=== PATIENT | female | born 1990 | race Caucasian/White ===

== ENCOUNTER 2022-05-06 11:31 | Outpatient (CLI) | payer BC, SELFPAY ==
[2022-05-07 12:41] LABS: Strep B DNA Probe NEGATIVE (Negative)
== END 2022-05-06 11:32 | disposition home or self-care (01) ==
LOC: NFLDREF 11:31
PROVIDERS: PCP Family Medicine; Visit Provider Advanced Practice Midwife
DX: Z34.93 Encounter for supervision of normal pregnancy, unspecified, third trimester (principal); Z3A.35 35 weeks gestation of pregnancy
CPT/HCPCS: 87081; 87653

== ENCOUNTER 2022-05-27 04:30 | Inpatient (IN) | payer BC, SELFPAY ==
[2022-05-27] VITALS (56 sets, daily range): BP systolic 88–139; BP diastolic 50–73; PULSE 60–118; RESP 16–18; TEMP 36.6–37.1; O2SAT 97–100; BMI 26.8
[2022-05-27] MEDS: LACTATED RINGERS 1000 ML 1,000 ML 1125 ML IV ×2 (05:26→06:17)
[2022-05-27] MEDS: LIDOCAINE 2% (PF) 5 ML VIAL EPIDURAL (06:03)
[2022-05-27] MEDS: ROPIVACAINE 0.2% 100 ml 100 ML 12 MG EPIDURAL (06:03)
[2022-05-27 06:10] LABS: SARS PCR* Negative SARS-CoV-2 (Negative)
--- NOTE | 2022-05-27 06:34 | PM.ANBPRC ---
PFSH PFSH Social History Smoking Status: Former smoker Meds Home Medications and Allergies Home Medications Medication Instructions Recorded Confirmed Type calcium carbonate 200 mg calcium 200 mg PO QID PRN 04/30/22 05/27/22 History (500 mg) chewable tablet (Tums) multivitamin 1 tab PO QDAY 04/30/22 05/27/22 History vitamin C-vitamin E 500 mg-400 1 cap PO DAILY 04/30/22 05/27/22 History unit capsule Allergies Allergy/AdvReac Type Severity Reaction Status Date / Time latex Allergy Intermediate Hives Verified 05/22/22 15:41 Results Labs Labs: Laboratory Results - last 24 hr 05/27/22 04:48 SARS-CoV-2 (PCR) Negative SARS-CoV-2 Vital Signs Vital Signs: Last Vital Signs Temp 98.6 F 05/27/22 02:16 Pulse 67 05/27/22 06:29 Resp 18 05/27/22 02:16 BP 93/52 L 05/27/22 06:29 Pulse Ox 98 05/27/22 06:26 Weight: 80.002 kg Height: 172.72 cm Anesthesia Procedures Epidural Insertion Start Time: 05:58 Stop Time: 06:58 Start Date: 05/27/22 Stop Date: 04/27/22 Reason for Block: procedure for pain Patient Position: sitting Performed By: Paradise Fraser Preanesthetic Checklist: IV checked, risks and benefits discussed, monitors and equipment checked, pre-op evaluation, timeout performed and anesthesia consent Prep: patient draped Monitoring: blood pressure monitoring, continuous pulse oximetry and heart rate Approach: midline Vertebral Space: lumbar (1-5) Epidural Technique: RACHELE saline Needle Type: Tuohy needle Injection Technique: continuous catheter Needle gauge: 17 Needle Length (cm): 10 cm Needle Insertion Depth (cm): 7 Catheter Type: multi-orifice Catheter at skin depth (cm): 14 Test Dose Result: negative
--- NOTE | 2022-05-27 08:17 | W.PM.LDBA ---
Subjective History of Present Illness Date Seen: 05/27/22 Narrative: Patient is being admitted to Labor and Delivery for spontaneous onset of labor. She is a 31 year old at 38 5/7 weeks gestation. She reports that her labor began last evening just before midnight. She presented to triage for increasing intensity and frequency of contractions. Around 530-6 am she received her epidural. She reports she is now comfortable with the epidural and is resting. Her full history and physical was dictated by Candace Rome CNP on 05/22/2022. Please see this for details. OB PROBLEM LIST 1. Blood type: O negative NEEDS RhoGAM PP 2. Subchorionic hemorrhage lower uterine segment, 0.4 x 0.4 x 1.6 cm. Asymptomatic OB - H&P: Exam Physical Exam: Vital signs: Temp Pulse Resp BP Pulse Ox 98.6 F 90 18 96/60 98 05/27/22 06:34 05/27/22 08:13 05/27/22 06:34 05/27/22 08:13 05/27/22 06:26 Constitutional: Constitutional: no acute distress Routine HEENT Exam: Head: Present atraumatic ENT: Present mucous membranes moist Routine Neck Exam: Neck: Present full ROM Comments: Supple Routine Respiratory Exam: Respiratory: Present CTA bilaterally Routine Cardiovascular Exam: Cardiovascular: RRR Routine Abdominal Exam: Comments: Gravid, cephalic by brian Detailed Labor and Delivery Exam: Patient Gravid: yes Dilation (cm): 5 Effacement (%): 80 Cervix position: mid Consistency: medium Contraction frequency (min): 2 Contraction duration (sec): 70 Tachysystole: No Contraction intensity: Strong/Firm Fetus (Single): Station: -1 Heart Rate Baseline: 125 Monitor Accelerations: Present Monitor Decelerations: None Prison Variability: Moderate (11-25) Routine Skin Exam: Present intact Routine Neurological Exam: Present alert and oriented X3 Routine Psychiatric Exam: Present normal affect and normal thought process OB - Problem Based A/P Additional Plan (1) Spontaneous onset of labor: Status: Acute (2) Pain during labor: Status: Acute Plan at 38 5/7 weeks gestation Patient is coping well with epidural, continue for labor pain management. Labor Spontaneous, early labor. Continue with expectant management. Patient declines AROM at this time, will evaluate in 2-4 hours. If unchanged, recommend AROM at that time. Category I FHR tracing GBS negative status Continue with intrapartum cares as ordered. Continuous monitoring with epidural in place. Anticipate vaginal . Delivery/Labor/Induction Plan Plan: expectant management
[2022-05-27] MEDS: PHENYLEPHRINE 100 MCG/ML SYRINGE IVP (08:34)
[2022-05-27] MEDS: LACTATED RINGERS 1000 ML 1,000 ML 125 ML IV (09:12)
[2022-05-27] MEDS: OXYTOCIN 30 unit/500 ML in NS 30 UNIT/500 ML BAG 300 UNIT IVPB (10:10)
[2022-05-27] MEDS: LIDOCAINE 1 % PF 30 ML INJECTION (10:20)
--- NOTE | 2022-05-27 11:03 | PM.OBPRCVD ---
Procedure Delivery date: 05/27/22 Procedure Done: Global Intrapartal Events: None Delivery monitor: external FHT and external uterine Route of delivery: Laceration description: Perineal - 2nd Degree Delivery repair: Vicryl (3-0) Estimated blood loss (mL): 150 Anesthesia type: Epidural (Local w/ repair) Narrative: Patient was admitted for spontaneous onset of labor. Continuous auscultation was reassuring throughout labor. Moderate variablity with intermittent decelerations noted during 2nd stage of labor. SROM noted at 0935 with clear fluid. Patient complete at 0940 and pushing at 0945. of a viable male at 1004. Vertex delivered OA. No nuchal cord or shoulder. Body delivered easily and without incident. Infant passed to mothers abdomen with a vigorous cry. Cord was clamped and cut at > 5 minutes. APGARS were 8 at one minute and 9 at five minutes respectively. Mouth was bulb suctioned. Intact placenta with a 3 vessel cord delivered spontaneous at 1014. Fundus firm. 2st degree identified and repaired in typical fashion. QBL 150 cc. Mother and baby stable; mother plans to breastfeed. Infant weight pending. Infant Gender: Male presentation: vertex Placental Delivery Description: Spontaneous Cord Description: 3 Vessels OB Vag Delivery Procedures Additional Procedures ECV: No Cook Catheter Insertion: No NST: No D&C: No Laceration Repair: Yes Tubal Ligation : No Other: No
[2022-05-27] MEDS: IBUPROFEN 600 MG TABLET PO ×2 (14:09→20:31)
[2022-05-27] MEDS: ACETAMINOPHEN 500 MG TABLET 1000 MG PO (17:03)
[2022-05-28 00:54] VITALS: BP 99/66; PULSE 66; RESP 16; TEMP 36.7; O2SAT 97
[2022-05-28] MEDS: ACETAMINOPHEN 500 MG TABLET 1000 MG PO (00:57)
[2022-05-28 04:02] VITALS: BP 96/64; PULSE 69; RESP 16; TEMP 36.6; O2SAT 97
[2022-05-28] MEDS: IBUPROFEN 600 MG TABLET PO (04:21)
[2022-05-28 06:23] LABS: Hemoglobin* 10.9 gm/dL (12.0-16.0)
--- NOTE | 2022-05-28 08:04 | P.DS_ITS ---
DS: Providers Provider Time Seen by Provider: 08:04 Date Seen: 05/28/22 Date of admission: 05/27/22 04:30 Primary care physician: Carissa Sadler MD Admitting Clinician: Sarah Wells MD Attending Physician on discharge: Sarah Wells MD Date of Discharge: 05/28/22 DS: Diagnosis Discharge Diagnosis (1) Lactating mother: Status: Acute DS: Medications Discharge Medications Other Medication Instructions: See discharge instructions Exam Const: Vital Signs, click to edit/add: Vital Signs - 24 hr 05/27/22 08:13 05/27/22 08:30 05/27/22 08:44 Temperature 98.1 F Pulse Rate 90 66 73 Pulse Rate [Pulse Oximeter] Respiratory Rate Blood Pressure 96/60 100/62 94/58 L Blood Pressure [Le ft Arm] Pulse Oximetry 05/27/22 09:00 05/27/22 09:14 05/27/22 09:29 Temperature Pulse Rate 75 75 65 Pulse Rate [Pulse Oximeter] Respiratory Rate Blood Pressure 102/57 L 98/56 L 111/55 L Blood Pressure [Le ft Arm] Pulse Oximetry 05/27/22 10:14 05/27/22 10:29 05/27/22 10:30 Temperature Pulse Rate 70 75 Pulse Rate [Pulse Oximeter] Respiratory Rate 16 Blood Pressure 139/68 109/58 L Blood Pressure [Le ft Arm] Pulse Oximetry 05/27/22 10:44 05/27/22 10:45 05/27/22 10:59 Temperature 98.8 F Pulse Rate 66 70 Pulse Rate [Pulse Oximeter] Respiratory Rate 16 Blood Pressure 110/57 L 112/62 Blood Pressure [Le ft Arm] Pulse Oximetry 05/27/22 11:00 05/27/22 11:14 05/27/22 11:15 Temperature Pulse Rate 66 Pulse Rate [Pulse Oximeter] Respiratory Rate 16 16 Blood Pressure 113/55 L Blood Pressure [Le ft Arm] Pulse Oximetry 05/27/22 11:29 05/27/22 11:30 05/27/22 11:44 Temperature Pulse Rate 63 66 Pulse Rate [Pulse Oximeter] Respiratory Rate 16 Blood Pressure 112/61 111/63 Blood Pressure [Le ft Arm] Pulse Oximetry 05/27/22 11:45 05/27/22 11:59 05/27/22 12:00 Temperature Pulse Rate 88 Pulse Rate [Pulse Oximeter] Respiratory Rate 16 16 Blood Pressure 116/67 Blood Pressure [Le ft Arm] Pulse Oximetry 05/27/22 12:14 05/27/22 12:15 05/27/22 12:29 Temperature Pulse Rate 60 69 Pulse Rate [Pulse Oximeter] Respiratory Rate 16 Blood Pressure 112/64 110/64 Blood Pressure [Le ft Arm] Pulse Oximetry 05/27/22 14:09 05/27/22 15:00 05/27/22 16:03 Temperature 98.1 F 97.9 F 98.2 F Pulse Rate Pulse Rate [Pulse Oximeter] 70 Respiratory Rate 16 Blood Pressure Blood Pressure [Le ft Arm] 105/67 Pulse Oximetry 97 05/27/22 17:03 05/27/22 18:00 05/27/22 20:26 Temperature 97.9 F 98.1 F 98.3 F Pulse Rate Pulse Rate [Pulse Oximeter] 74 Respiratory Rate 16 Blood Pressure Blood Pressure [Le ft Arm] 101/63 Pulse Oximetry 97 05/28/22 00:54 05/28/22 04:02 Temperature 98.0 F 97.9 F Pulse Rate Pulse Rate [Pulse Oximeter] 66 69 Respiratory Rate 16 16 Blood Pressure Blood Pressure [Le ft Arm] 99/66 96/64 Pulse Oximetry 97 97 Documenting provider has reviewed patient's vital signs: yes Common normals: no apparent distress, oriented x3 and healthy appearing General appearance: cooperative HENMT: Common normals: normocephalic Head and scalp: normocephalic Neck & C-Spine: Common normals: full ROM and supple Chest: Common normals: inspection of chest normal Chest: symmetrical chest wall rise Resp: Common normals: normal respiratory effort and clear to auscultation bilaterally Auscultation: clear to auscultation bilaterally Cardio: Common normals: regular rate and regular rhythm Rate: regular rate Rhythm: regular rhythm GI: Common normals: Normal to inspection, nondistended, normoactive bowel sounds present and soft to palpation Palpation: soft : Common normals: external appearance normal (mild edema) External Female Exam: external swelling (mild); no erythema Speculum exam - vagina: vaginal laceration OB/external & speculum: Yes bleeding (normal lochia) Uterus: U/U Lochia: small Uterus palpation: uterus nontender Back & Pelvis: Common normals: thoracic and lumbar spine normal to inspection Extremity: Common normals: normal to inspection and full ROM Neuro: Common normals: oriented x3 Skin: Common normals: no rashes or lesions noted General skin exam: no rashes or lesions noted OB - DS: Summary Hospital Course Hospital Course: The patient is a 31 year old G 2 P 2002 at 38.5 weeks gestation that was admitted to the [facility] on 05/27/22 for labor. She had an uncomplicated vaginal delivery. She delivered a viable male infant. She is breast feeding, which is going well. the patient has done well. She is planning on NFP/ for prevention. Her vitals have remained stable, and she is afebrile. She is voiding without difficulty. Her pain is well c ontrolled with current medications. She is ambulating w/o difficulty. Time spent discussing smoking cessation with patient: 3 to 10 minutes Peripartum Data delivery method: Vaginal Laceration description: Perineal - 2nd Degree [place] Infant Gender: Male Infant Discharge Plan: Home [place] Infant A Infant Gender: Male Infant Discharge Plan: Home Status at Discharge Functional status at discharge: independent ambulation Overall status at discharge: patient is back to baseline Time Spent with Patient Time attestation: Total time spent providing and/or coordinating discharge services: Time spent: Less than 30 minutes Discharge Plan Discharge Disposition: Home, Self-Care Date of Admission: 05/27/22 04:30 Attending Provider on Discharge: Carissa Larsen Primary Care Provider: Carissa Sadler Condition: Stable Anticipated Discharge Date/Time: 05/28/22 13:00 Discharge Medications: New docusate sodium 100 mg Capsule 100 mg PO DAILY Qty: 100 0RF Rx Instructions: take 1 cap 1-2 times a day as needed for constipation ibuprofen 600 mg Tablet 600 mg PO Q6H PRNQty: 60 0RF acetaminophen 500 mg Tablet 1,000 mg PO Q6H PRN (Reason: pain/fever) Qty: 0 0RF pramoxine 1 % Foam 1 applic topical QID PRNQty: 0 0RF simethicone 80 mg Tablet,Chewable 80 - 160 mg PO Q4H PRN (Reason: gas) Qty: 0 0RF Lanolin (HPA) 100 % Cream 1 applic topical Q1H PRNQty: 0 0RF Continued vitamin C-vitamin E 500-400 mg-unit capsule 1 cap PO DAILY 0RF multivitamin Tablet 1 tab PO QDAY 0RF calcium carbonate [Tums] 200 mg calcium (500 mg) tablet,chewable 200 mg PO QID PRN0RF Discharge Orders: Discharge Order (Routine); Ordered 05/28/22 Ordered By: Carissa Larsen Activity Level: Activity as Tolerated Discharge Diet: Regular Follow Up Appointments: Carissa Larsen CNM [Certified Nurse Vessel Crew Member] - Carissa Sadler MD [Primary Care Provider] - [facility]
== END 2022-05-28 10:50 | disposition home or self-care (01) | DRG 560 ==
LOC: OB OUT 04:31 → OB 04:31
PROVIDERS: Advanced Practice Midwife; Admitting Provider Obstetrics & Gynecology; PCP Family Medicine; Visit Provider Obstetrics & Gynecology
DX: O70.1 Second degree perineal laceration during delivery (principal); Z3A.38 38 weeks gestation of pregnancy; Z37.0 Single live birth
CPT/HCPCS: 01967; 36415; 85018; 87635; A9270; J2001; J2370; J2795; J7120

== ENCOUNTER 2023-02-25 08:09 | Outpatient (CLI) | payer BC, SELFPAY ==
--- NOTE | 2023-02-25 08:15 | CRLHL7_ITS ---
For Patients: As a result of the Cures Act, medical imaging exams and procedure reports are released immediately into your electronic medical record. You may view this report before your referring provider. If you have questions, please contact your health care provider. INDICATION: First trimester scan, establish dates. COMPARISON: None. TECHNIQUE: Real-time tatum-scale imaging of the pelvis was performed. FINDINGS: Sonographic imaging demonstrates a single living intrauterine gestation. The embryo demonstrates a regular cardiac rate measuring 120 beats per minute. The embryo`s crown-rump length measurement of 0.3 cm corresponds to a gestational age of 5 weeks 6 days with a sonographic due date of October 22, 2023. There is a normal-appearing yolk sac measuring 2 mm. There are no gross abnormalities noted within the embryo at this early state of development. The placenta has not yet developed. The gestational sac has a normal appearance and there is no evidence of a perigestational hemorrhage. The amount of fluid within the sac appears appropriate for gestational age. The cervix is closed. The myometrium appears normal. The ovaries are of normal size. The right ovary measures 2.7 x 1.3 x 2.0 cm. The left ovary measures 4.5 x 1.8 x 1.7 cm. Small corpus luteum cyst of on the left measuring 1.9 x 1.3 x 1.7 cm. There are no suspicious fluid collections noted in the cul-de-sac. IMPRESSION: Normal first trimester OB ultrasound exam. Gestational age calculated at 5 weeks 6 days with a sonographic due date of October 22, 2023. Dictated by Alex Schroeder MD @ 02/25/2023 9:57:19 AM (Electronically Signed)
== END 2023-02-25 08:10 | disposition home or self-care (01) ==
LOC: US 08:10
PROVIDERS: PCP Family Medicine; Visit Provider Advanced Practice Midwife
DX: Z34.91 Encounter for supervision of normal pregnancy, unspecified, first trimester (principal); Z3A.01 Less than 8 weeks gestation of pregnancy
CPT/HCPCS: 76817; 86703; 86803; 86850; 86900; 86901; 87340; 87491; 87591

== ENCOUNTER 2023-02-25 09:20 | Outpatient (CLI) | payer BC, SELFPAY ==
[2023-02-25 20:21] LABS: Chlamydia DNA Amplified* NOT DETECTED (No Detected); GC DNA Amplified* NOT DETECTED (No Detected)
== END 2023-02-25 09:21 | disposition home or self-care (01) ==
PROVIDERS: PCP Family Medicine; Visit Provider Advanced Practice Midwife
DX: Z34.91 Encounter for supervision of normal pregnancy, unspecified, first trimester (principal); Z3A.08 8 weeks gestation of pregnancy
CPT/HCPCS: 86592; 86703; 86762; 86787; 86803; 86850; 86900; 86901; 87086; 87340; 87491; 87591

== ENCOUNTER 2023-07-29 14:01 | Outpatient (CLI) | payer BC, SELFPAY | END 2023-07-29 14:02 | disposition home or self-care (01) | LOC: NFLDREF 14:01 | PROVIDERS: PCP Family Medicine; Visit Provider Physician Assistant | DX: O09.522 Supervision of elderly multigravida, second trimester (principal); Z3A.27 27 weeks gestation of pregnancy | CPT/HCPCS: 86592; 86850; J2791 ==

== ENCOUNTER 2023-09-22 15:30 | Outpatient (CLI) | payer BC, SELFPAY | END 2023-09-22 15:31 | disposition home or self-care (01) | LOC: NFLDREF 09-24 20:12 | PROVIDERS: PCP Family Medicine; Referring Provider Family Medicine; Visit Provider Advanced Practice Midwife | DX: Z34.83 Encounter for supervision of other normal pregnancy, third trimester (principal); O09.529 Supervision of elderly multigravida, unspecified trimester; Z36.85 Encounter for antenatal screening for Streptococcus B | CPT/HCPCS: 87081; 87653 ==

== ENCOUNTER 2023-10-12 01:00 | Outpatient (CLI) | payer BC, SELFPAY ==
[2023-10-12 01:06] VITALS: PULSE 74; O2SAT 99
[2023-10-12 01:08] VITALS: BP 103/65; PULSE 100; RESP 16; TEMP 36.6
--- NOTE | 2023-10-12 04:51 | PC.OBNST ---
NST Note NST Note Start: 10/12/23 01:10 Freq: ONCE Status: Active Protocol: Document 10/12/23 04:50 KRISSY (Rec: 10/12/23 04:51 KRISSY [id number]) NST Note 3 Para (# of births) 2 EDC 10/22/23 Gestational Age In Weeks & Days 38 Weeks & 4 Days Patient Presented with Complaint(s) of Contractions/cramping Reactive Yes Appropriate for Gestational Age Yes FRANK Barr RNC Date 10/12/23 Reactive Yes Appropriate for Gestational Age Yes FRANK Lewis RN Date 10/12/23 OB NST charge Yes Complete NST Note via Write Note Yes The provider's electronic signature indicates the NST is reactive/appropriate for gestational age. *Note to provider: If an addendum is required, open the patient's chart and click on the note under the Nurse/Allied Health tab.
== END 2023-10-12 04:44 | disposition home or self-care (01) ==
LOC: OB OUT 01:01 → OB 01:03
PROVIDERS: PCP Family Medicine; Visit Provider Advanced Practice Midwife
DX: O47.1 False labor at or after 37 completed weeks of gestation (principal); Z3A.38 38 weeks gestation of pregnancy
CPT/HCPCS: 59025; 99213

== ENCOUNTER 2023-10-17 01:08 | Inpatient (IN) | payer BC, SELFPAY ==
[2023-10-17] VITALS (33 sets, daily range): BP systolic 97–125; BP diastolic 46–74; PULSE 60–214; RESP 16–18; TEMP 36.6–37.1; O2SAT 80–100; BMI 27.3
[2023-10-17 01:00] LABS: Amnisure Rom* POSITIVE
--- NOTE | 2023-10-17 03:06 | W.PM.LDBA ---
Subjective History of Present Illness Narrative: Rosalee Neal is a 33 yo at 39 2/7 weeks gestation being admitted to Labor and Delivery for PROM. She reports she woke up last evening to rupture of membranes, clear fluid, around 2300. She has had some mild cramping but denies any regular contractions. She is supported by her , Brayan. Her full history and physical was dictated by MEIR Hightower on 09/29/2023. Please see this for details. Specific Issues/Plans . Dates by 5w6d USN H&P 09/29/23 by Tamara Hightower CNM Latex Allergy Spouse: Brayan. Children: Joaquin Vargas. Baby: Boy! 1. RH negative, needs rhogam at 28 weeks. Given 07/29/23 2. AMA: age 33 at delivery [id number]: No increased risk for aneuploidy, male. LVL 2 USN [facility] 05/25/23: Breech, 3vessel cord, post placenta no previa, Normal survey. EFW 81%. COVID: not vaccinated Flu: declines TDAP: 08-12-23 RSV: recommended. declined. OB - Problem Based A/P Additional Plan (1) PROM (premature rupture of membranes): Status: Acute (2) AMA (advanced maternal age) multigravida 35+: Status: Acute (3) 39 weeks gestation of : Status: Acute (4) Rh negative state in antepartum period: Status: Acute Plan ASSESSMENT:? 33 at 39 2/7 weeks gestation? complicated by:?Rh negative, AMA Labor type: Not in labor? Category 1 FHR pattern.?? Labor complicated by: PROM? GBS negative? ? PLAN:? 1. Routine intrapartum cares as ordered. Reviewed PROM and use of Pitocin for augmentation vs expectant management for 12-24 hours. She prefers expectant management. Encouraged sleep tonight. Reviewed ways to encourage labor in the morning including activity, walking/position changes, nipple stimulation, and labor warm-up. All questions answered. 2. Monitoring per policy, intermittent? 3. Planning epidural for pain management. Candidate for analgesia of choice if desired. 4. Patient encouraged to reposition and ambulate to promote physiologic labor and .? 5. Anticipate ? Delivery/Labor/Induction Plan Plan: expectant management OB Exam Physical Exam Vital signs: Temp Pulse BP 98.2 F 106 H 116/71 10/17/23 01:48 10/17/23 00:30 10/17/23 00:30 Narrative: Vitals Reviewed Constitutional:? Alert and oriented x3 HEENT:? Normocephalic, atraumatic Neck:? Supple Lungs:? Clear to auscultation bilaterally Heart:? Regular rate and rhythm, no murmur, rub or gallop Abdomen:? Soft, nontender, and gravid. Vertex by Huber's, confirmed with cervical exam. Extremities:? No edema or erythema Cervix: 3 cm/50%/0 station/vertex per RN NST: 125 bpm/moderate variability/15x15 accelerations/absent decelerations/occasional contractions Detailed Labor and Delivery Exam Patient Gravid: Yes
--- NOTE | 2023-10-17 10:56 | PM.OBPNL ---
Subjective Date Seen: 10/17/23 Narrative: ?Val is reporting occasional labor pain/contractions. ?Brayan is with her for support. ?She is now 12 hours post ROM and would like to move forward with augmentation with IV Pitocin. Continues to leak clear fluid, SVE deferred at this time. ? Objective Exam: General Appearance:? Calm, cooperative. ?No acute distress. ? Psychiatric Exam: Alert and oriented, appropriate affect Abdomen: Gravid Ctx: ?irregular ?Mild ? ? FHTs: ?Baseline: 135. ?EFM just placed for 2 minute NST. SVE: deferred Membranes: Intact ?SROM X 12 hours Vital Signs: Last Vital Signs Temp 98.2 F 10/17/23 10:00 Pulse 75 10/17/23 09:58 Resp 16 10/17/23 10:00 BP 108/64 10/17/23 09:58 Plan Plan: Assessment:?? at 39.2 gestation?? GBS Negative? Labor type: Not in labor? complicated by: AMA, Rh negative Labor complicated by: PROM? Plan:?? Augmentation with IV Pitocin per protocol. Continuos monitoring while on IV Pitocin. Continue with routine intrapartum cares as ordered.?? Patient encouraged to move and change positions to promote physiologic labor and .?? Nonpharmacologic comfort measures per patient preference. Candidate for analgesia of choice, planning epidural. Anticipate progress to NVD. ?
[2023-10-17 11:30] LABS: Basophils Absolute Auto 0.02 K/uL (0.00-0.30); Basophils Percent Auto 0.2 % (0.0-3.0); Eosinophils Absolute Auto 0.07 K/uL (0.00-0.50); Eosinophils Percent Auto 0.7 % (0.0-7.0); Hematocrit 37.3 % (33.0-51.0); Hemoglobin* 12.5 gm/dL (12.0-16.0); Immature Granulocytes Abs Auto 0.02 K/uL (0.00-0.30); Immature Granulocytes Pct Auto 0.2 %; Lymphocytes Percent Auto 17.3 % (20-44); Mean Corpuscular HGB Conc 34 gm/dL (32-36); Mean Corpuscular Hemoglobin 31 pg (26-34); Mean Corpuscular Volume 93 fL (80-100); Monocytes Percent Auto 5.3 % (0.0-11.0); Neutrophils Percent Auto 76.3 % (42.0-72.0); Platelet Count* 136 K/uL (140-440); RDW Coefficient of Variation % 13.1 % (11.5-15.5); Red Blood Count 4.02 m/uL (4.00-5.20); Slide Review Reflex No; White Blood Count* 9.62 K/uL (4.50-11.00)
[2023-10-17] MEDS: LACTATED RINGERS 1000 ML 1,000 ML 125 ML IV (11:46)
[2023-10-17] MEDS: OXYTOCIN 30 unit/500 ML in NS 30 UNIT/500 ML BAG IVPB (11:47)
[2023-10-17] MEDS: LACTATED RINGERS 1000 ML 1,000 ML 999 ML IV (13:49)
[2023-10-17] MEDS: ROPIVACAINE 0.2% 100 ml 100 ML 12 MG EPIDURAL (14:02)
--- NOTE | 2023-10-17 14:11 | P.ANBPRC_ITS ---
PFSH PFS Medical History NVD (normal vaginal delivery) ?O80 - Encounter for full-term uncomplicated delivery (ICD-10) Surgical History History of endoscopy ?Z98.890 - Other specified postprocedural states (ICD-10) S/P sympathectomy ?Z98.890 - Other specified postprocedural states (ICD-10) H/O knee surgery ?Z98.890 - Other specified postprocedural states (ICD-10) [place] teeth extracted ?K08.409 - Partial loss of teeth, unspecified cause, unspecified class (ICD- 10) Family History Paternal Grandmother Liver cancer Paternal Grandfather Dementia Maternal Grandmother Alveolar emphysema of lung Maternal Grandfather Diabetes Social History Narrative: SOCIAL? ? Education: Bachelors? ? Work: office services manager? ? Partner: Brayan, , Finance? ? Lives with: Brayan, kids? ? Pets: dogs? ? Abuse: Denies past Unable to assess current, partner present? ? Special Diet: Denies? ? Ok with a blood transfusion: yes? ? Culture or quaker beliefs: denies? RISK FACTORS? ? Exercise Times/wk: walking/running? ? Depression/Anxiety: denies? ? Previous Treatments NA Therapy NA SAM: 0 PHQ 9: 0? ? Seat Belt Use: Routinely ? Smoking: Denies past ?Smoked 4 years, socially in college Alcohol/day: Denies while ? ? Caffeine: 2 cups coffee ? ? Drug Use: Denies past/present? What is your current living situation?: I presently have a place to live Problems where you live: no known problems In the past 12 months, utilities in danger of being shut off: no In past 12 months, lack of transportation kept you from medical appts, meetings, work, or getting things needed for daily living: no In the past 12 mos, have been you worried that your food would run out before you had money to buy more?: never true In the past 12 mos, the food you bought just didn't last and you didn't have money to buy more?: never true Smoking Status: Never smoker How often does anyone, including family, friends and others, physically hurt you : never How often does anyone, including family, friends and others, insult or talk down to you: never How often does anyone, including family, friends and others, threaten you with harm: never How often does anyone, including family, friends and others, scream or curse at you: never Little interest or pleasure in doing things: not at all Feeling down, depressed, or hopeless: not at all Meds Home Medications and Allergies Home Medications Medication Instructions Recorded Confirmed Type multivitamin 1 tab PO QDAY 04/30/22 10/17/23 History cholecalciferol (vitamin D3) 25 25 mcg PO QDAY 02/25/23 10/17/23 History mcg (1,000 unit) capsule vitamin B complex 1 tab PO QDAY 02/25/23 10/17/23 History Allergies Allergy/AdvReac Type Severity Reaction Status Date / Time latex Allergy Intermediate Hives Verified 10/13/23 15:24 Results Labs Labs: Laboratory Results - last 24 hr 10/17/23 10/17/23 00:32 11:20 WBC 9.62 RBC 4.02 Hgb 12.5 Hct 37.3 MCV 93 MCH 31 MCHC 34 RDW Coeff of Carrie 13.1 Plt Count 136 L Neut % (Auto) 76.3 H Lymph % (Auto) 17.3 L [place] % (Auto) 5.3 Eos % (Auto) 0.7 Baso % (Auto) 0.2 Neut # (Auto) 7.30 H Lymph # (Auto) 1.70 [place] # (Auto) 0.50 Eos # (Auto) 0.07 Baso # (Auto) 0.02 Abs Immat Gran (auto) 0.02 Imm/Tot Granulo (auto) 0.2 Membrane Rupture POSITIVE Blood Type O Negative Antibody Screen POSITIVE Vital Signs Vital Signs: Last Vital Signs Temp 98.2 F 10/17/23 10:00 Pulse 96 10/17/23 14:09 Resp 16 10/17/23 10:00 BP 110/67 10/17/23 14:09 Pulse Ox 100 10/17/23 13:57 Weight: 81.647 kg Height: 172.72 cm Anesthesia Procedures Epidural Insertion Patient Location: OB Start Time: 13:30 Stop Time: 14:30 Start Date: 10/17/23 Stop Date: 10/17/23 Reason for Block: procedure for pain Patient Position: sitting Performed By: Sang Lockwood Preanesthetic Checklist: IV checked, risks and benefits discussed, surgical consent, monitors and equipment checked, pre-op evaluation, timeout performed and anesthesia consent Prep: chlorhexidine gluconate Monitoring: blood pressure monitoring, continuous pulse oximetry and heart rate Approach: midline Vertebral Space: lumbar (1-5) Epidural Technique: RACHELE saline Needle Type: Tuohy needle Injection Technique: continuous catheter Needle gauge: 17 Needle Length (cm): 10 cm Needle Insertion Depth (cm): 6 Catheter Gauge: 19 Catheter Type: multi-orifice Catheter at skin depth (cm): 12 Test Dose Result: negative and lidocaine 1.5% with epinephrine 1 to 200,000
--- NOTE | 2023-10-17 14:30 | P.OBPN_ITS ---
Subjective Date Seen: 10/17/23 Narrative: ?Val is coping well with labor pain/contractions. ?Braayn is with her for support. ?She recently had an epidural placed and is feeling pressure with contractions. She continues to leak clear fluid. She would like to continue with her epidural for comfort and pain management.? Objective Exam: VSS, afebrile General Appearance:? Calm, cooperative. ?No acute distress. ? Psychiatric Exam: Alert and oriented, appropriate affect Abdomen: Gravid Ctx: ?Q 2-3 min apart. ? ?Moderate ? FHTs: ?Baseline: 130. ? ? Variability: moderate. ?Accels: +. ? ?Decels: ?late decels times 2 in last 30 minutes. SVE: 6/95%/-1 Membranes: ?SROM X 15.5 hours Vital Signs: Last Vital Signs Temp 98.2 F 10/17/23 10:00 Pulse 92 10/17/23 14:25 Resp 16 10/17/23 10:00 BP 118/51 L 10/17/23 14:25 Pulse Ox 100 10/17/23 13:57 Pelvic Exam Dilation (cm): 6 Effacement (%): 95 Station: -1 Contractions Monitor mode: External Contraction Frequency: 2-3 Contraction pattern: Regular Contraction intensity: Moderate Pitocin Rate (mU/min): 2 Assessment Assessment: active labor Station: -1 Amniotic Membrane Status: SROM Status: Category ll Heart Rate Baseline: 130 Trade Economist Variability: Moderate (6-25) Monitor Accelerations: Absent Monitor Decelerations: Late (2 in last 30 minutes) Plan Plan: Assessment:?? at 39.2 gestation?? GBS neg Patient is coping well with challenges of labor.?? Labor type: Augmented, Active labor? complicated by: AMA, Rh negative Labor complicated by: PROM without onset of labor, augmentation with IV Pitocin? Plan:?? Continue with augmentation, titrate IV Pitocin per protocol based on pt response Continue with routine intrapartum cares as ordered.?? Patient encouraged to change positions to promote physiologic labor and .?? Epidural for pain management Continuous monitoring per protocol Anticipate progress to NVD. ?
--- NOTE | 2023-10-17 15:34 | W.PM.OBVAGDE ---
OB Procedure Vag Delivery Mother Details Mother Details: The patient is a 33 year-old, 3, Para 2, admitted on 10/17/23 at 39.2 Days gestation for SROM with clear fluid. : 3 Para: 3 Weeks Gestation: 39.2 Admission Date: 10/16/23 Additional Details Amniotic Membrane Status: SROM Amniotic Membrane Rupture Date: 10/16/23 Amniotic Membrane Rupture Time: 23:00 Amniotic Membrane Fluid Description: Clear Analgesia/Anesthesia Type: Epidural Waterbirth: No Pitcoin: Yes Intrapartal Events: Labor Augmentation Delivery augmentation: pitocin Labor Onset: 12:00 Complete: 14:52 Pushin:53 Heart: heart tones during second stage were Category II, FHR 115 no variables with moderate variability and no accelerations. Delivery Details Delivery Date: 10/17/23 Delivery Time: 15:12 Route of delivery: Gender: Male Infant Viability: Alive; Heart Rate Present Position at Delivery: OA Delivery Details: 33?y.o?at 39.2 weeks.? Val had SROM wih clear fluid at 2300 on 10/16/23 without onset of contractions. After 12 hours of rupture without labor we discussed options of waiting longer for labor to start or augmentation with IV Pitocin. Risks and benefits were reviewed and she elected to move forward with Pitocin augmentation. Her Pitocin rate was increased to 2mu/hr and she requested an epidural for pain. Shortly after placement she complained of strong pelvic pressure and was found to be complete. ? ? She became complete at 1452.??She pushed in semi-fowlers position..? Spontaneous vaginal delivery at 1512 of?a viable?male infant.??Delivered in vertex OA position.??There was a 30 second shoulder dystocia which was resolved with delivery of the posterior arm. Jose was performed just prior to this. ? Spontaneous cry noted.?? placed on maternal abdomen.??Cord?was clamped and cut after a 5+ minute delay.??Nose and mouth were bulb suctioned.? Shoulder dystocia: yes 30 seconds? Nuchal cord: no? Meconium stained?fluid: no? Water : no? ? ? 8 at 1 minute and 9 at 5 minutes.? ? Placenta delivered spontaneously and?complete?at 1525 with a?3 vessel?cord.?? Bleeding controlled with fundal massage and?pitocin?for AMTSL.? ? Mother and were stable after delivery.? ? Lacerations:? 1st degree perineal , hemostatic and after discussion with patient was not repaired. ? Bleeding?post delivery?was: minimal . ?The fundus was firm to palpation.? Blood loss: 100?mL.? Blood loss measurement type: QBL? ? ? Sponge,?lap?and needles counts are correct.? Mother and infant were stable after delivery.? 1 Minute Interval Total Score: 8 5 Minute Interval Total Score: 9 Additional Details Shoulder Dystocia: Yes Placenta Delivery Time: 15:25 Placental Delivery Description: Spontaneous Procedure Done: Global Blood Loss: 100 Laceration: Perineal - 1st Degree Blood Loss Measurement Type: QBL Bakri Used: No Sponge/Need Count Correct: Yes Cord Vessel Description: 3 Vessels Event Summary Status: Mother and were stable after delivery. Disposition: floor
[2023-10-17] MEDS: ACETAMINOPHEN 500 MG TABLET 1000 MG PO (19:42)
[2023-10-17] MEDS: IBUPROFEN 600 MG TABLET PO (23:28)
[2023-10-18 04:43] VITALS: BP 115/62; PULSE 69; RESP 16; TEMP 36.9; O2SAT 96
[2023-10-18] MEDS: IBUPROFEN 600 MG TABLET PO (05:40)
--- NOTE | 2023-10-18 06:26 | PM.ANPOST ---
Post Anesthesia Note Post Anesthesia Note Patient seen: Inpatient Respiratory Status: adequate Cardiovascular Status: adequate Mental Status: baseline Pain: adequate Temp: baseline Anesthetic awareness: N/A Complications: none Follow care: none
[2023-10-18 07:52] VITALS: BP 95/58; PULSE 69; RESP 14; TEMP 36.8
--- NOTE | 2023-10-18 08:46 | PM.OBDSVD1 ---
DS: Providers Provider Date Seen: 10/18/23 Date of admission: 10/17/23 01:08 Primary care physician: Carissa Sadler MD Admitting Clinician: Jessica Mcclendon CNM Attending Physician on discharge: Jessica Mcclendon CNM DS: Diagnosis Discharge Diagnosis (1) care and examination immediately after delivery: Status: Acute (2) Lactating mother: Status: Acute Exam Narrative: Exam Narrative: GENERAL APPEARANCE:? normal affect, alert, no distress MOOD:? appropriate CHEST:? clear to auscultation HEART:? regular rate and rhythm ABDOMEN:? soft, non-tender the uterine fundus is at Umbilicus, Midline and is appropriate for the stage of recovery. PERINEUM:? mild edema of the perineum, there is a Perineal Laceration,? 1st degree, that is healing well. EXTREMITIES:? normal and no edema Const: Vital Signs, click to edit/add: Vital Signs - 24 hr 10/17/23 09:00 10/17/23 09:58 10/17/23 10:00 Temperature 98.3 F 98.2 F Pulse Rate 75 Pulse Rate [Left P ulse Oximeter] Respiratory Rate 16 16 Blood Pressure 108/64 Blood Pressure [Le ft Arm] Pulse Oximetry Oxygen Delivery Me thod 10/17/23 13:47 10/17/23 13:47 10/17/23 13:52 Temperature Pulse Rate Pulse Rate [Left P ulse Oximeter] Respiratory Rate Blood Pressure Blood Pressure [Le ft Arm] Pulse Oximetry 80 L 100 100 Oxygen Delivery Me thod 10/17/23 13:57 10/17/23 14:01 10/17/23 14:03 Temperature Pulse Rate 71 75 Pulse Rate [Left P ulse Oximeter] Respiratory Rate Blood Pressure 116/65 125/74 Blood Pressure [Le ft Arm] Pulse Oximetry 100 Oxygen Delivery Me thod 10/17/23 14:03 10/17/23 14:05 10/17/23 14:07 Temperature 98.2 F Pulse Rate 86 79 Pulse Rate [Left P ulse Oximeter] Respiratory Rate 16 Blood Pressure 110/66 104/65 Blood Pressure [Le ft Arm] Pulse Oximetry Oxygen Delivery Me thod 10/17/23 14:09 10/17/23 14:15 10/17/23 14:19 Temperature Pulse Rate 96 82 88 Pulse Rate [Left P ulse Oximeter] Respiratory Rate Blood Pressure 110/67 97/54 L 102/58 L Blood Pressure [Le ft Arm] Pulse Oximetry Oxygen Delivery Me thod 10/17/23 14:25 10/17/23 14:41 10/17/23 15:25 Temperature 98.2 F Pulse Rate 92 72 Pulse Rate [Left P ulse Oximeter] Respiratory Rate Blood Pressure 118/51 L 102/46 L Blood Pressure [Le ft Arm] Pulse Oximetry Oxygen Delivery Me thod 10/17/23 15:26 10/17/23 15:40 10/17/23 15:55 Temperature Pulse Rate 83 106 H 72 Pulse Rate [Left P ulse Oximeter] Respiratory Rate Blood Pressure 98/55 L 100/59 L 100/57 L Blood Pressure [Le ft Arm] Pulse Oximetry Oxygen Delivery Me thod 10/17/23 16:10 10/17/23 16:25 10/17/23 16:40 Temperature Pulse Rate 60 63 Pulse Rate [Left P ulse Oximeter] Respiratory Rate Blood Pressure 102/58 L 100/56 L 106/59 L Blood Pressure [Le ft Arm] Pulse Oximetry Oxygen Delivery Me thod 10/17/23 16:55 10/17/23 17:10 10/17/23 17:10 Temperature 98.4 F Pulse Rate 62 99 Pulse Rate [Left P ulse Oximeter] Respiratory Rate Blood Pressure 106/62 107/72 Blood Pressure [Le ft Arm] Pulse Oximetry Oxygen Delivery Me thod 10/17/23 20:14 10/17/23 23:17 10/18/23 04:43 Temperature 98.0 F 98.7 F 98.4 F Pulse Rate Pulse Rate [Left P ulse Oximeter] 63 62 69 Respiratory Rate 18 16 16 Blood Pressure Blood Pressure [Le ft Arm] 105/67 106/69 115/62 Pulse Oximetry 97 97 96 Oxygen Delivery Me thod Room Air Room Air Room Air 10/18/23 07:52 Temperature 98.2 F Pulse Rate Pulse Rate [Left P ulse Oximeter] 69 Respiratory Rate 14 Blood Pressure Blood Pressure [Le ft Arm] 95/58 L Pulse Oximetry Oxygen Delivery Me thod Documenting provider has reviewed patient's vital signs: yes OB - DS: Summary Hospital Course Hospital Course: Rosalee Neal is a 33 y.o. G 3 P 3 who was admitted to [facility] for PROM. ?She had a NVD that was uncomplicated. The patient feels well. ?The pain is well controlled with current medications. ?She has no new complaints. ?She is breast feeding and reports things are going well. the patient has done well.? Vitals have been stable.? She has remained afebrile.? Has a good appetite, is tolerating a general diet. ?She is voiding without difficulty.? She is passing gas and has not had a bowel movement.? She is ambulating and denies any dizziness.? Has small amount of rubra lochia. She is planning her to get a vasectomy for prevention. Problems: none plan: Discharge home with baby. Follow up in 2 weeks and 6 weeks. , may see if needed Peripartum Data Infant delivery method: Vaginal Laceration description: Perineal - 1st Degree complications: none Infant Gender: Male Infant Discharge Plan: Home Status at Discharge Functional status at discharge: independent ambulation Overall status at discharge: patient is progressing back to baseline Time Spent with Patient Time attestation: Total time spent providing and/or coordinating discharge services: Discharge Plan Discharge Disposition: Home, Self-Care Date of Admission: 10/17/23 01:08 Attending Provider on Discharge: Jessica Mcclendon Primary Care Provider: Carissa Sadler Condition: Stable Anticipated Discharge Date/Time: 10/18/23 10:00 Discharge Medications: New acetaminophen 500 mg Tablet 1,000 mg PO Q6H PRN (Reason: pain/fever) Qty: 0 0RF docusate sodium 100 mg Capsule 100 mg PO DAILY Qty: 90 0RF ibuprofen 600 mg Tablet 600 mg PO Q6H PRNQty: 60 0RF Continued multivitamin Tablet 1 tab PO QDAY vitamin B complex Tablet 1 tab PO QDAY cholecalciferol (vitamin D3) 25 mcg (1,000 unit) capsule 25 mcg PO QDAY Discharge Orders: Discharge Order (Routine); Ordered 10/18/23 Ordered By: Jessica Mcclendon Patient Education: OB Over the Counter Medication Information, OB Vaginal/Breast Feeding Additional Instructions: Discharge instructions were reviewed with the patient including signs and symptoms of infection and home going medications Nothing vaginally for 6 weeks: no tampons or intercourse Off Work or School for 6 weeks Optional 2-week visit: discuss infant feeding concerns, review control options and screen for anxiety/depression. 6-week visit for an annual exam. consultation services are available to all mothers and babies for the first year after delivery.? To make an appointment, please call [phone]. Activity Level: Activity as Tolerated Discharge Diet: Regular Follow Up Appointments: Carissa Sadler MD [Primary Care Provider] - Forms: [employer] Info Instructions
[2023-10-18] MEDS: DOCUSATE SODIUM 100 MG CAPSULE PO (09:58)
[2023-10-18 11:52] VITALS: BP 96/60; PULSE 69; RESP 14; TEMP 36.6
[2023-10-18] MEDS: ACETAMINOPHEN 500 MG TABLET 1000 MG PO (13:07)
[2023-10-18 16:03] VITALS: BP 98/62; PULSE 68; RESP 14; TEMP 36.8
== END 2023-10-18 16:48 | disposition home or self-care (01) | DRG 560 ==
LOC: OB OUT 01:09 → OB 01:09
PROVIDERS: Admitting Provider Advanced Practice Midwife; PCP Family Medicine; Visit Provider Advanced Practice Midwife
DX: O70.0 First degree perineal laceration during delivery (principal); Z3A.39 39 weeks gestation of pregnancy; Z37.0 Single live birth; O66.0 Obstructed labor due to shoulder dystocia; O26.893 Other specified pregnancy related conditions, third trimester; Z67.41 Type O blood, Rh negative
CPT/HCPCS: 01967; 36415; 84112; 85025; 86850; 86870; 86880; 86900; 86901; A9270; J2371; J2795; J7120; S0020

== ENCOUNTER 2024-12-14 09:09 | Outpatient (CLI) | payer BC, SELFPAY | END 2024-12-14 09:10 | disposition home or self-care (01) | PROVIDERS: Visit Provider Registered Nurse | DX: Z13.6 Encounter for screening for cardiovascular disorders (principal) | CPT/HCPCS: 80061 ==